=== PATIENT | female | born 1945 | race Caucasian/White ===

== ENCOUNTER 2019-05-26 07:10 | Day surgery (SDC) | payer MEDICARE, OTHER ==
[~2019-05-26] VITALS: Ht 160 cm; Wt 55.7 kg
[~2019-05-26 07:10] MED LIST: ACET500; Lutein6 MG PO; MULTI VITAMIN1 EACH PO; OSTEO BI-FLEX1 EAC2 PO; POLY500
[2019-05-26] MEDS ORDERED: LOSA50 (08:01)
== END 2019-05-26 10:15 | disposition home or self-care (01) ==
LOC: ORSCSDS 07:10
PROVIDERS: Internal Medicine Gastroenterology
PROC: 0DJD8ZZ Inspection of Lower Intestinal Tract, Via Natural or Artificial Opening Endoscopic (ICD-10-PCS; principal; 2019-05-26 09:00)
DX: Z12.11 Encounter for screening for malignant neoplasm of colon (principal); K57.30 Diverticulosis of large intestine without perforation or abscess without bleeding; Z86.010 Personal history of colon polyps
CPT/HCPCS: J0330; J0461; J2405; J2704; J7120

== ENCOUNTER 2023-01-02 15:54 | Inpatient (IN) | payer MEDICARE, OTHER ==
[~2023-01-02] VITALS: Ht 165.1 cm; Wt 50.0 kg
[~2023-01-02 15:54] MED LIST changes: +LOSA50
[2023-01-02 16:25] LABS: BASOPHILS ABSOLUTE AUTO 0.04 K/mm3 (0.00-0.23); BASOPHILS PERCENT AUTO 1 % (0-2); EOSINOPHILS ABSOLUTE AUTO 0.01 K/mm3 (0.00-0.68); EOSINOPHILS PERCENT AUTO 0 % (0-6); Hematocrit 34.8 % (33.0-51.0); Hemoglobin 12.8 g/dL (11.5-16.0); IMMATURE GRAN ABSOLUTE AUTO 0.04 K/mm3 (0.00-0.10); IMMATURE GRAN PERCENT AUTO 1 % (0-1); LYMPHOCYTES ABSOLUTE AUTO 0.57 K/mm3 (0.84-5.20); LYMPHOCYTES PERCENT AUTO 9 % (21-46); MONOCYTES ABSOLUTE AUTO 0.73 K/mm3 (0.16-1.47); MONOCYTES PERCENT AUTO 12 % (4-13); Mean Corpuscular HGB 33.5 pg (26.0-34.0); Mean Corpuscular HGB Conc 36.8 g/dL (31.5-36.5); Mean Corpuscular Volume 91 fL (80-100); Mean Platelet Volume 9.5 fL (9.1-12.4); NEUTROPHILS ABSOLUTE AUTO 4.65 K/mm3 (1.96-9.15); NEUTROPHILS PERCENT AUTO 77 % (41-73); Platelet Count 190 K/mm3 (150-400); RDW Coefficient Variation 11.5 % (11.7-14.2); RDW Standard Deviation 38.6 fL (35.1-46.3); Red Blood Cell Count 3.82 M/mm3 (3.80-5.20); White Blood Cell Count 6.04 K/mm3 (4.00-11.30)
[2023-01-02 16:39] LABS: International Normalized Ratio 1.11; Prothrombin Time Results 11.6 Sec (9.7-11.5)
[2023-01-02 16:41] LABS: Albumin, Blood 3.6 g/dL (3.4-5.0); Albumin/Globulin Ratio 1.3 (0.8-1.8); Bilirubin, Total 0.9 mg/dL (0.1-1.0); Bun/Creatinine Ratio 15.2 (12.0-20.0); Creatinine, Blood 0.59 mg/dL (0.40-1.00); Globulin, Blood 2.8 g/dL (2.2-4.0); Potassium, Blood 3.1 mmol/L (3.5-5.5); Total Protein, Blood 6.4 g/dL (6.4-8.2)
[2023-01-02 16:55] LABS: Creatine Kinase MB 1.8 ng/mL (0.0-3.6); Magnesium, Blood 2.1 mg/dL (1.6-2.4)
[2023-01-02 17:00] LABS: Creatine Kinase MB Index 1.2 (0.0-4.0); Thyroid Stimulating Hormone 1.13 uIU/mL (0.360-4.800)
[2023-01-02 19:51] LABS: Source, Urine Clean Catch
[2023-01-02 20:03] LABS: Appearance, Urine Hazy (Clear); Bilirubin, Urine Neg (Neg); Blood, Urine Neg (Neg); Glucose Qualitative, Urine Neg (Neg); Ketones, Urine 1+ (Neg); Leukocyte Esterase, Urine 1+ (Neg); Nitrite, Urine Neg (Neg); Protein, Urine Neg (Neg); Urobilinogen, Urine NORM (Normal)
[2023-01-02 20:21] LABS: Color, Urine Pale Yellow (P-Yellow)
[2023-01-02 20:22] LABS: Amorphous Mod (0-Heavy); Bacteria Few /hpf; Red Blood Cells, Urine 0-2 /hpf (0-2); Squamous Epithelial Cells Rare /hpf (Few)
[2023-01-02 21:30] VITALS: BP 148/76
[2023-01-03 05:07] LABS: BASOPHILS ABSOLUTE AUTO 0.05 K/mm3 (0.00-0.23); BASOPHILS PERCENT AUTO 1 % (0-2); EOSINOPHILS ABSOLUTE AUTO 0.02 K/mm3 (0.00-0.68); EOSINOPHILS PERCENT AUTO 0 % (0-6); Hematocrit 32.9 % (33.0-51.0); Hemoglobin 11.8 g/dL (11.5-16.0); IMMATURE GRAN ABSOLUTE AUTO 0.02 K/mm3 (0.00-0.10); IMMATURE GRAN PERCENT AUTO 0 % (0-1); LYMPHOCYTES ABSOLUTE AUTO 0.85 K/mm3 (0.84-5.20); LYMPHOCYTES PERCENT AUTO 14 % (21-46); MONOCYTES PERCENT AUTO 17 % (4-13); Mean Corpuscular HGB 33.1 pg (26.0-34.0); Mean Corpuscular HGB Conc 35.9 g/dL (31.5-36.5); Mean Corpuscular Volume 92 fL (80-100); Mean Platelet Volume 9.8 fL (9.1-12.4); NEUTROPHILS PERCENT AUTO 68 % (41-73); Platelet Count 168 K/mm3 (150-400); RDW Coefficient Variation 11.8 % (11.7-14.2); RDW Standard Deviation 39.9 fL (35.1-46.3); Red Blood Cell Count 3.56 M/mm3 (3.80-5.20); White Blood Cell Count 6.04 K/mm3 (4.00-11.30)
[2023-01-03 05:57] LABS: Albumin, Blood 3.3 g/dL (3.4-5.0); Albumin/Globulin Ratio 1.3 (0.8-1.8); Bilirubin, Total 1.2 mg/dL (0.1-1.0); Bun/Creatinine Ratio 10.6 (12.0-20.0); Calcium, Blood 8.5 mg/dL (8.5-10.1); Creatinine, Blood 0.66 mg/dL (0.40-1.00); Globulin, Blood 2.5 g/dL (2.2-4.0); Potassium, Blood 3.3 mmol/L (3.5-5.5); Total Protein, Blood 5.8 g/dL (6.4-8.2)
[2023-01-03 08:23] LABS: CHOL/HDL RATIO 1.8; Cholesterol 153 mg/dL (50-200); HDL Cholesterol 83 mg/dL (>39); LDL/HDL RATIO 0.7; Low Density Lipoprotein Chol 61 mg/dL (0-110); Triglycerides 43 mg/dL (30-160); Very Low Density Lipoprot Chol 8 mg/dL (6-32)
[2023-01-03 11:18] VITALS: BP 159/88
[2023-01-03] MEDS ORDERED: SOLI5 PO (11:29)
[2023-01-03] MEDS ORDERED: LOSA50 PO (11:29)
--- NOTE | 2023-01-03 11:39 | NUR ---
HISTORY TALKING WITH . HE RELATED THAT SHE HAS HAD "3 SLUMP" EPISODES INT HE LAST [address] LAZO TOOK HER OFF CYMBALTA ON SUNDAY D/T TO DEPRESSION AND LETHERGY. PT RELATED THAT PT WEARS A "PAIN PATCH" THAT GETS CHANGED WEEKLY. HE WILL BRING IN A PACKAGE. CONTINUE POC.
[2023-01-03] MEDS ORDERED: BUPRENORPHINE (11:54)
--- NOTE | 2023-01-03 12:31 | NUR ---
ECHO DONE. CONTINUE POC.
[2023-01-03 15:10] VITALS: BP 178/87
--- NOTE | 2023-01-03 16:07 | NUR ---
NOTE PT ALERT. AT BEDSIDE. HE DID BRING IN HER VITAMIN BOTTLES AND BOX FOR THE SUBOXONE PATCHS REQUESTED. PT IS WEAK BUT STEADY. SHE WALKS AWAY FROM HER IV POLE. DOES NOT USE THE CALL LIGHT. CLIMBS OOB. BED ALARM ON. SPOUCE WILL NOT ALERT STAFF THAT SHE IS GETTING UP. IVF INFUSING PER ORDER. SHE HAS DECLINED PAIN. POSTERIOR HEAD LACERATION NATURAL FABRICATOR. EDGES WELL APPROXIMATED. NO DRAINAGE NOTED. POOR APPETITE. SHE PUSHS THE FOOD AROUND HER PLATE. CONTINUE POC.
--- NOTE | 2023-01-03 17:58 | NUR ---
NOTE PT CONFUSED TO PERSON. SHE HAS TROUBLE TIEING HER PANTS. SPOUSE IS CONCERNED THAT SHE IS DEVELOPING DEMENTIA. SHE INTRODUCED HIM HER NEIGHBOR. VSS. STEADY ON HER FEET. SHE TAKING HER TELE WIRES OFF AND TRIED TO PULL HER IV. BED ALARM ON. SHE IS INCONTINENT OF URINE. PULL UP ON. SHE DOES NOT RECOGNIZE THAT HER ATTENDS IS WET. CONTINUE POC.
[2023-01-03 21:31] VITALS: BP 191/96
--- NOTE | 2023-01-03 22:24 | NUR ---
START OF SHIFT ASSUMED CARE OF PT FROM JANETT GARCES AT 2119. PT TRANSPORTED VIA W.C TO ROOM. PT POSSESSIONS WITH PT. BP HIGH, CONTACTING DR TO REPORT. PT LEFT IN A STATE OF SAFETY AND COMFORT WITH BED IN LOW POSITION, NONSKID SOCKS IN PLACE, BED LOCKED, TWO BED RAILS IN PLACE, BED ALARM ACTIVATED, CALL LIGHT WITHIN REACH, AND EXTERNAL CAMERA MONITORING.
--- NOTE | 2023-01-03 22:50 | NUR ---
PT WAS TRANSFERRED TO SCU ROOM 348 FOR CONFUSION, PULLING OFF MED TELE STRIPS AND PULLING AT IV SITE. NOTE PT BP ELEVATED AND READING RECENT HX FALL AT HOME, WITH APPARENT HITTING HEAD. CALL PLACED TO MD GUIDE FOREIGN TOUR RE BP MED AND TO REVIEW POSSIBLE NEED FOR HEAD CT. MD TO FOLLOW UP WITH CHECKING CHART AND WILL ASSESS POSSIBLE NEED FOR CT.
--- NOTE | 2023-01-03 22:54 | NUR ---
TRANSFER: PT TRANSFERRED TO SCU 348 FROM [facility]. PT VERY CONFUSED THIS SHIFT STATING HER WAS HER NEIGHBOR AND THAT SHE NEEDED TO GET OUT THIS PLACE FOR HER APPOINTMENT TONIGHT. PT MOVED FOR SAFETY. BED ALARM ON. REPORT GIVEN TO MAG GONSALES AND LENDING ADVISOR. ALL BELONGINGS SENT WITH PT.
[2023-01-03 23:04] VITALS: BP 195/102
--- NOTE | 2023-01-03 23:18 | NUR ---
MD RETURNED CALL POST REVIEW OF CHART. CT HAD BEEN DONE. NO APPARENT NEED FOR ANOTHER ONE. ANTIHYPERTENSIVE MED GIVEN, MD TO FOLLOW P WITH MORE MEDS TO ADDRESS HTN. SEE MAR FOR DETAILS. WARM BLANKET APPLIED TO PT, PT SMILED. CALL LIGHT IN REACH
[2023-01-04 00:06] VITALS: BP 175/86
[2023-01-04 02:21] VITALS: BP 177/93
--- NOTE | 2023-01-04 04:54 | NUR ---
SHIFT SUMMARY DR CALLED REGARDING INCREASED BP, LOSARTAN ORDERED BID FOR MANAGEMENT OF BP. COMFIRMED PT RECEIVED CT SCAN POST FALL AT HOME. PT CONFUSED, ORIENTED TO SELF. REPEATEDLY TRIES TO EXIT BED. BED ALARM ENABLED, CONTINUOUS CAMERA MONITORING IN ROOM. ABLE TO BE REDIRECTED. PT PULLED OUT R FOREARM IV. MULTIPLE REATTEMPTS MADE, NONE SUCCESSFUL. ULTRASOUND IV PLACEMENT REQUESTED. PT REMAINS IN A POSITION OF COMFORT AND SAFETY.
--- NOTE | 2023-01-04 05:17 | NUR ---
I HAVE ASSISTED/OBSERVED STUDENT DOING PT CARE AND HAVE READ HER CHARTING. I AGREE WITH THE ABOVE.
--- NOTE | 2023-01-04 05:29 | NUR ---
PT REFUSED PLACEMENT OF IV VIA ULTRASOUND FROM ANNEMARIE MONTOYA. WILL PASS TO DAY SHIFT TO REAPPROACH.
[2023-01-04 07:35] VITALS: BP 180/96
[2023-01-04 15:15] VITALS: BP 190/93
[2023-01-04 15:20] VITALS: BP 162/98
--- NOTE | 2023-01-04 16:59 | NUR ---
SHIFT SUMMARY. PT AMBULATING THROUGHOUT THE SCU AREA. CONFUSED, TRYING TO GET HER EDBFLA-BI-AVI CLOTHING SHE REPORTS THAT HE WAS ADMITTED TO HER ASSIGNED ROOM. NO OTHER PERSON ASSIGNED TO HER ROOM. PT REFUSES ANY LABORATORY DRAWS OR ADDITIONAL ATTEMPTS FOR IV ACCESS, PROVIDER AWARE. BLOOD PRESSURE IMPROVING SLOWLY WITH PO COZAAR. TELEMETRY REMOVED MULTIPLE TIMES BY PT AND REPLACED. BP IMPROVED FROM 195/102 MAX FROM YESTERDAY TO NOW 162/98. PT DENIES PAIN BUT DOES REPORT GENERALIZED ACHES. PT DECLINES OFFERS FOR PRN PAIN MEASURES. PT APPROACHABLE BUT NOT EASILY REDIRECTED. AT BEDSIDE INTERMITTENLY THROUGH SHIFT.
--- NOTE | 2023-01-04 17:27 | NUR ---
NURSE NOTE THIS RN HAS REVIEWED AND AGREES WITH STUDENT NURSE SHIFT ASSESSMENT, CHARTING AND SHIFT SUMMARY.
[2023-01-04 19:17] VITALS: BP 181/116
--- NOTE | 2023-01-04 20:12 | NUR ---
HIGH FALL RSK, NOT WILLING TO REDIRECT, AGITATION INREASED WHEN ENCOURAGED TO REMAIN SAFE IN BED OR SITTING ON CHAIR. MULTIPLE ATTEMPTS TO REDIRECT. MD NOTIFIED AND PLACED IN SATINDER FOR SAFETY. CALL LIGHT IN REACH.
[2023-01-05] VITALS (7 sets, daily range): BP systolic 153–184; BP diastolic 83–105
--- NOTE | 2023-01-05 04:54 | NUR ---
SHIFT SUMMARY PT A&O TO SELF AND PERSON. PT ATTEMPTS TO LEAVE UNIT, UNABLE TO REDIRECT. SATINDER ORDERED, PATIENT MONITORED VIA EXTERNAL CAMERA MONITORING AND Q2 HOURS PER POLICY. PT RESTED PART OF SHIFT. PT BP ELEVATED, BEING MANGAGED BY LOSARTAN BID. PT STILL REFUSES IV ADMINISTRATION. WILL REAPPROACH PT FOR ULTRASOUND IV PLACEMENT. REMAINING VSS. PT REMAINS IN A POSITION OF COMFORT WITH BED LOCKED AND IN LOW POSITION, ROOM FREE OF DEBRIS, BED RAILS RAISED X2, NONSKID SOCKS IN PLACE, BED ALARM ACTIVE, AND CALL LIGHT WITHIN REACH.
--- NOTE | 2023-01-05 05:19 | NUR ---
I HAVE OBSERVED NURSE STUDENTS ASSESSMENTS/CARE AND DOCUMENTATION OF SUCH. I AGREE WITH HE ABOVE.
--- NOTE | 2023-01-05 08:47 | NUR ---
CALLED DR. BURNS TO VERIFY THE ORDER REGARDING TO HOLD LOSARTAN DOSE SCHEDULED. RECEIVED ORDER FROM DR. BURNS TO GIVE THE SCHEDULED DOSE OF LOSARTAN THIS AM.
[2023-01-05 10:05] LABS: Hematocrit 36.6 % (33.0-51.0); Hemoglobin 13.4 g/dL (11.5-16.0); Mean Corpuscular HGB 33.1 pg (26.0-34.0); Mean Corpuscular HGB Conc 36.6 g/dL (31.5-36.5); Mean Corpuscular Volume 90 fL (80-100); Mean Platelet Volume 9.7 fL (9.1-12.4); Platelet Count 202 K/mm3 (150-400); RDW Coefficient Variation 11.5 % (11.7-14.2); RDW Standard Deviation 38.4 fL (35.1-46.3); Red Blood Cell Count 4.05 M/mm3 (3.80-5.20); White Blood Cell Count 6.29 K/mm3 (4.00-11.30)
[2023-01-05 10:27] LABS: Albumin, Blood 3.4 g/dL (3.4-5.0); Albumin/Globulin Ratio 1.2 (0.8-1.8); Bilirubin, Total 1.1 mg/dL (0.1-1.0); Bun/Creatinine Ratio 18.1 (12.0-20.0); Calcium, Blood 8.9 mg/dL (8.5-10.1); Creatinine, Blood 0.55 mg/dL (0.40-1.00); Globulin, Blood 2.9 g/dL (2.2-4.0); Potassium, Blood 3.1 mmol/L (3.5-5.5); Total Protein, Blood 6.3 g/dL (6.4-8.2)
--- NOTE | 2023-01-05 13:08 | NUR ---
NOTE: CALLED DR. BURNS TO REPORT PATIENT LAB VALUES TRENDING DOWN SUCH ; NA 122, K 3.1, CHLORIDE 86. PER DR. BURNS SHE WILL PUT ORDERED FOR IV FLUIDS.
--- NOTE | 2023-01-05 17:55 | NUR ---
SHIFT SUMMARY: PATIENT ALERT AND ORIENTED TO SELF, PLACE AND PERSON. SLIGHTLY FORGETFUL AND CONFUSED AND TIMES. FOLLOW DIRECTIONS. CALM, PLEASANT AND COOPERATIVE c CARE. SATINDER VEST RESTRAINTS WAS DC'D AT AROUND 1320. DENIES CP/PRESSURE, SOB AND GENERALIZED PAIN. ON TELE, SR HR IN THE HIGH 60'S BPM. PATIENT CONT/INC OF URINE, AMBULATES TO BATHROOM AND BACK IN BED c 1 ASSIST. EATING AND DRINKING WELL WITHOUT ANY DIFFICULTIES. COG EVAL WAS DONE TODAY, SCORE 19/30 INDICATING MODERATE COGNITIVE IMPAIRMENT PER OT. UA SAMPLE WAS SENT TO LAB, AWAITING FOR RESULT. PATIENT RECEIVED SCHEDULED MEDS PER EMAR. ORTHOSTATIC VITALS WAS DONE; LAYING FLAT BP 161/83 c HR OF 62 BPM, SITTING ON THE EOB BP 184/99 c HR OF 66 BPM, STANDING UP BP 178/105 c HR OF 72 BPM. PATIENT SITTING UP IN THE CHAIR FOR ABOUT 3 HRS AND TOLERATED WELL. PIV TO R FOREARM INFUSING NS AT 100 MLS/HR. BED ALARM ON FOR SAFETY. CALL LIGHT IN REACH.
[2023-01-06 03:00] VITALS: BP 165/92
--- NOTE | 2023-01-06 04:06 | NUR ---
SHIFT SUMMARY PATIENT HAD NO ACUTE CHANGES. AXOX 3 WITH CONFUSION AT TIMES. ONE ASSIST W/FWW GB TO BSC. PIV REMAINS INTACT. NS INFUSING AT 100 mL/HR. TELE MONITOR NSR 66. DENIES CHEST PAIN, SOB, AND N/V. CALL LIGHT IN REACH. BED IN LOWEST POSITION. WILL CONTINUE TO MONITOR UNTIL DAY SHIFT NURSE ASSUMES CARE.
[2023-01-06 06:20] LABS: Bun/Creatinine Ratio 22.2 (12.0-20.0); Calcium, Blood 8.6 mg/dL (8.5-10.1); Creatinine, Blood 0.54 mg/dL (0.40-1.00); Potassium, Blood 3.7 mmol/L (3.5-5.5)
[2023-01-06 07:09] VITALS: BP 174/89
[2023-01-06 15:23] VITALS: BP 164/81
--- NOTE | 2023-01-06 18:30 | NUR ---
SHIFT SUMMARY: PATIENT A&OX3. CALM, PLEASANT AND COOPERATIVE c CARE. USES CALL LIGHT APPROPRIATELY. PATIENT DENIES CP/PRESSURE, SOB AND GENERALIZED PAIN. ON TELE SR IN THE MID 70'S BPM. PATIENT LAB VALUES HAS IMPROVED TODAY; NA 131, K3.7, CHLORIDE 99. PATIENT AMBULATES TO BATHROOM c SBA, CONT/INCON OF URINE. PATIENT HAD SHOWER THIS AM c MINIMAL ASSIST. RECEIVED SCHEDULED MEDS PER EMAR. VITAL SIGNS REVIEWED. PIV TO R FOREARM INFUSING NS AT 100 MLS/HR. BED ALARM ON FOR SAFETY. ON CONTINOUS VIDEO MONITORING. CALL LIGHT IN REACH.
[2023-01-06 19:50] VITALS: BP 164/119
[2023-01-06 19:51] VITALS: BP 180/89
--- NOTE | 2023-01-07 04:37 | NUR ---
SHIFT SUMMARY PATIENT HAD NO ACUTE CHANGES. AXOX 3 W/CONFUSION. ONE ASSIST W/FWW TO BR. ON ROOM AIR. PIV REMAINS INTACT. NS INFUSING AT 00 mL/HR. HYPERTENSIVE AND SCHEDULE HTN MEDS GIVEN. DENIES CHEST PAIN, SOB, AND N/V. AFEBRILE. CALL LIGHT IN REACH. BED IN LOWEST POSITION. WILL CONTINUE TO MONITOR UNTIL DAY SHIFT NURSE ASSUMES CARE.
[2023-01-07 05:45] VITALS: BP 197/94
[2023-01-07 06:30] LABS: Hematocrit 39.2 % (33.0-51.0); Hemoglobin 13.8 g/dL (11.5-16.0); Mean Corpuscular HGB 33.3 pg (26.0-34.0); Mean Corpuscular HGB Conc 35.2 g/dL (31.5-36.5); Mean Platelet Volume 9.3 fL (9.1-12.4); Platelet Count 212 K/mm3 (150-400); RDW Coefficient Variation 11.9 % (11.7-14.2); RDW Standard Deviation 41.1 fL (35.1-46.3); Red Blood Cell Count 4.14 M/mm3 (3.80-5.20); White Blood Cell Count 5.76 K/mm3 (4.00-11.30)
[2023-01-07 06:34] LABS: Mean Corpuscular Volume 95 fL (80-100)
[2023-01-07 06:42] LABS: Albumin, Blood 3.4 g/dL (3.4-5.0); Albumin/Globulin Ratio 1.2 (0.8-1.8); Bilirubin, Total 0.7 mg/dL (0.1-1.0); Bun/Creatinine Ratio 14.7 (12.0-20.0); Creatinine, Blood 0.68 mg/dL (0.40-1.00); Globulin, Blood 2.9 g/dL (2.2-4.0); Potassium, Blood 3.2 mmol/L (3.5-5.5); Total Protein, Blood 6.3 g/dL (6.4-8.2)
[2023-01-07 06:43] VITALS: BP 174/92
--- NOTE | 2023-01-07 06:44 | NUR ---
SBP 197/94 AND PO APRESOLINE 10 MG GIVEN FOR SBP >180 SBP 174/92 ON RECHECK
[2023-01-07 07:08] VITALS: BP 165/90
[2023-01-07] MEDS ORDERED: METO25ER PO (09:49)
--- NOTE | 2023-01-07 11:50 | NUR ---
1116 discahrged home via w/c, driving, both patient and stated understanding of discharge instructions, follow up needs, and new medications
== END 2023-01-07 11:19 | disposition home or self-care (01) | DRG 640 ==
LOC: ER 15:54 → MEDS 19:43 → ERHOLD 19:43 → MEDS 20:19
PROVIDERS: Student in an Organized Health Care Education/Training Program; ADMIT Internal Medicine
PROC: 0HQ0XZZ Repair Scalp Skin, External Approach (ICD-10-PCS; principal; 2023-01-02)
DX: E87.1 Hypo-osmolality and hyponatremia (principal); G92.8 Other toxic encephalopathy; N39.0 Urinary tract infection, site not specified; E87.6 Hypokalemia; G89.4 Chronic pain syndrome; G30.9 Alzheimer's disease, unspecified; F02.A0 Dementia in other diseases classified elsewhere, mild, without behavioral disturbance, psychotic disturbance, mood disturbance, and anxiety; I95.1 Orthostatic hypotension; S01.01XA Laceration without foreign body of scalp, initial encounter; R58 Hemorrhage, not elsewhere classified; W18.30XA Fall on same level, unspecified, initial encounter; I10 Essential (primary) hypertension; Z90.710 Acquired absence of both cervix and uterus; Z98.890 Other specified postprocedural states; Z87.11 Personal history of peptic ulcer disease; Z79.899 Other long term (current) drug therapy
CPT/HCPCS: 12011; 36415; 70450; 71046; 72125; 80048; 80053; 80061; 81001; 82533; 82550; 82553; 83735; 83880; 84300; 84443; 84484; 84550; 85025; 85027; 85610; 87086; 90471; 90714; 93005; 93010; 93308; 93321; 96365-59; 96366-59; 97129; 97166; 97535; 99285-25; A9270; J0360; J1650; J3480; J7030

== ENCOUNTER → 2023-09-21 | Outpatient (CLI) | payer MEDICARE, OTHER ==
[~2023-09-21] MED LIST changes: +BUPRENORPHINE; +LOSA50 PO; +METO25ER PO; +SOLI5 PO
[2023-09-26 09:47] LABS: CORTISOL,U FREE - RATIO TO CRT 44.23 ug/g CRT; CORTISOL,URINE FREE - PER 24H 34.3 ug/d (<=45.0); CREATININE,URINE - PER 24H 776 mg/d (500-1400); CREATININE,URINE - PER VOLUME 97 mg/dL; HOURS COLLECTED 24 hr; TOTAL VOLUME 800 mL
== END | disposition home or self-care (01) ==
LOC: LAB SHORT 16:26
PROVIDERS: Internal Medicine Endocrinology, Diabetes & Metabolism
DX: E27.8 Other specified disorders of adrenal gland (principal)
CPT/HCPCS: 81050; 82530

== ENCOUNTER 2025-07-26 16:18 | Emergency (ER) | payer MEDICARE ==
[~2025-07-26] VITALS: Ht 160 cm; Wt 49.9 kg
[2025-07-26 16:22] VITALS: BP 145/103
[2025-07-26] MEDS ORDERED: Robaxin750 MG PO (18:50)
[2025-07-26] MEDS ORDERED: Voltaren100 GM TOP (18:50)
== END 2025-07-26 19:21 | disposition home or self-care (01) ==
LOC: ER 16:18
DX: S86.912A Strain of unspecified muscle(s) and tendon(s) at lower leg level, left leg, initial encounter (principal); X58.XXXA Exposure to other specified factors, initial encounter; I10 Essential (primary) hypertension; Z79.899 Other long term (current) drug therapy
CPT/HCPCS: 73562-LT; 99283-25; A9270